=== PATIENT | female | born 1980 | race Caucasian/White ===

== ENCOUNTER 2019-12-04 02:38 | Emergency (ER) | payer OTHER, SELFPAY ==
[2019-12-04] MEDS ORDERED: Adacel (T-DAP) 0.5 ML SYRINGE ONE (03:35)
--- NOTE | 2019-12-04 09:32 | RAD ---
RIGHT HAND: HISTORY: Pain. FINDINGS: The carpals appear normally aligned. The metacarpals and phalanges appear intact. IMPRESSION: No acute finding. POS: [id number]
== END 2019-12-04 03:58 | disposition home or self-care (01) ==
LOC: MADERS 02:38
DX: S60.021A Contusion of right index finger without damage to nail, initial encounter (principal); F17.210 Nicotine dependence, cigarettes, uncomplicated; F41.9 Anxiety disorder, unspecified; F32.9 Major depressive disorder, single episode, unspecified; Z79.899 Other long term (current) drug therapy; X58.XXXA Exposure to other specified factors, initial encounter
CPT/HCPCS: 90471; 90715